=== PATIENT | male | born 1955 | race Caucasian/White ===

== ENCOUNTER 2018-02-27 16:51 | Emergency (ER) | payer OTHER ==
[~2018-02-27] VITALS: Ht 180.3 cm; Wt 87.1 kg
== END 2018-02-28 02:08 | disposition home or self-care (01) ==
LOC: ER 16:51
DX: K52.9 Noninfective gastroenteritis and colitis, unspecified (principal); R10.32 Left lower quadrant pain

== ENCOUNTER 2020-07-12 11:10 | Inpatient (IN) | payer OTHER ==
[~2020-07-12] VITALS: Ht 154.9 cm; Wt 90.7 kg
[~2020-07-12 11:10] MED LIST: DIOVAN40 MG; METFORMIN HCL500 MG; TRIPLE ANTIBIOT15 GM TP
[2020-07-12] MEDS ORDERED: ZESTRIL10 M1 PO (12:00)
== END 2020-07-16 11:53 | disposition home or self-care (01) | DRG 256 ==
LOC: ER 11:10 → MEDJ 19:01
PROVIDERS: Specialist; ADMIT Internal Medicine; ATTEND Internal Medicine
PROC: 0Y6R0Z0 Detachment at Right 2nd Toe, Complete, Open Approach (ICD-10-PCS; principal; 2020-07-14 10:00)
DX: E11.52 Type 2 diabetes mellitus with diabetic peripheral angiopathy with gangrene (principal); I96 Gangrene, not elsewhere classified; L97.518 Non-pressure chronic ulcer of other part of right foot with other specified severity; M86.171 Other acute osteomyelitis, right ankle and foot; E11.621 Type 2 diabetes mellitus with foot ulcer; Z79.4 Long term (current) use of insulin; I10 Essential (primary) hypertension; Z20.822 Contact with and (suspected) exposure to COVID-19; B96.5 Pseudomonas (aeruginosa) (mallei) (pseudomallei) as the cause of diseases classified elsewhere

== ENCOUNTER 2020-08-28 15:11 | Inpatient (IN) | payer OTHER ==
[~2020-08-28] VITALS: Ht 180.3 cm; Wt 94.3 kg
[~2020-08-28 15:11] MED LIST changes: +ZESTRIL10 M1 PO
--- NOTE | 2020-08-28 15:24 | NUR ---
PTE REFIERE CELULITES EN AREA DEL [facility] DONDE LE AMPUTARON HACE 3 SEMAS SE ISAURO S/V Y SE UBICA EN AREA DE OBSERVACION
--- NOTE | 2020-08-28 16:35 | NUR ---
SE ORIENTA PTE SOBRE TX MEDICO EL CUAL REFIERE ENTENDER.SE LE EXTRAEN MUESTRAS BAJO MEDIDAS ASEPTICAS,SE CANALIZA Y SE COLOCA FLUIDOS DE MANTENIMIENTO BAJANDO SIN DIFICULTAD.
--- NOTE | 2020-08-28 23:33 | NUR ---
SE RECIBE PACIENTE EN SANDY CON MEDIDAS DE SEGURIDAD, LUCE ALERTA CONSCIENTE Y ORIENTADO X3. BUEN PATRON RESPIRATORIO. IV PATENTE VENESSA DE EDEMA Y ENROJECIMIENTO. PTE EN ESPERA DE SER VISTO EN CONSULTA POR MEDICINA INTERNA.
--- NOTE | 2020-08-29 07:36 | NUR ---
SE RECIBE PTE MASCULINO ALERTA Y ORIENTADO EN L[place] JAY ESFERAS DEL TUR[place] ANTERIOR, CON BUEN PATRON RESPIRATROIO Y NO REFIERE DOLOR AL MOMENTO. VENOPUNCION PATENTE VENESSA DE EDEMA Y ERITEMA RECIBIENDO TERAPIA DE IVFS 0.9NSS BAJANDO A 150ML/HR. PENDIENTE CONSULTA CON .
== END 2020-09-10 20:53 | disposition home or self-care (01) | DRG 504 ==
LOC: ER 15:11 → SURH 08-29 11:10 → SURG 08-29 11:10 → SURH 08-31 16:50
PROVIDERS: Specialist; ADMIT Internal Medicine; ATTEND Internal Medicine
PROC: BQ3LZZZ Magnetic Resonance Imaging (MRI) of Right Foot (ICD-10-PCS; 2020-08-29)
PROC: 8E0ZXY6 Isolation (ICD-10-PCS; 2020-08-31)
PROC: 0QBN0ZZ Excision of Right Metatarsal, Open Approach (ICD-10-PCS; principal; 2020-09-03 07:00)
PROC: 02HV33Z Insertion of Infusion Device into Superior Vena Cava, Percutaneous Approach (ICD-10-PCS; 2020-09-06)
PROC: 3E04328 Introduction of Oxazolidinones into Central Vein, Percutaneous Approach (ICD-10-PCS; 2020-09-06)
DX: M86.171 Other acute osteomyelitis, right ankle and foot (principal); L03.115 Cellulitis of right lower limb; L97.516 Non-pressure chronic ulcer of other part of right foot with bone involvement without evidence of necrosis; E11.621 Type 2 diabetes mellitus with foot ulcer; B95.8 Unspecified staphylococcus as the cause of diseases classified elsewhere; I73.9 Peripheral vascular disease, unspecified; Z79.84 Long term (current) use of oral hypoglycemic drugs; R60.9 Edema, unspecified
CPT/HCPCS: 73221

== ENCOUNTER 2022-07-13 20:59 | Inpatient (IN) | payer OTHER ==
[~2022-07-13] VITALS: Ht 180.3 cm; Wt 90.7 kg
--- NOTE | 2022-07-13 21:53 | NUR ---
SE RECIBE PTE ALERTA ORIENTADO X3.PTE REFIERE NO TENER MOVILIDAD EN BRAZO DERECHO Y PIERNA DERECHA DESDE LEAH EN LA TARDE.SE ISAURO S/V Y SE UBICA.
--- NOTE | 2022-07-13 22:43 | NUR ---
SE ORIENTA PTE SOBRE TX A SEGUIR, EL CUAL REFIERE ENTENDER. SE COLECTAN MUESTRAS UTILIZANDO MEDIDAS ASEPTICAS
[2022-07-17] MEDS ORDERED: CLOPIDOGREL BIS75 MG PO (21:04)
[2022-07-17] MEDS ORDERED: AMLODIPINE BESYL5 MG PO (21:04)
[2022-07-17] MEDS ORDERED: ZESTRIL10 M1 PO (21:05)
[2022-07-17] MEDS ORDERED: LIPITOR40 MG PO (21:05)
[2022-07-17] MEDS ORDERED: TOPROL XL50 M1 PO (21:06)
[2022-07-17] MEDS ORDERED: KAOPECTATE240 MG PO (21:06)
[2022-07-17] MEDS ORDERED: PANTOPRAZOLE SO40 MG PO (21:06)
[2022-07-17] MEDS ORDERED: ADULT ASPIRIN81 MG PO (21:06)
[2022-07-17] MEDS ORDERED: METFORMIN HCL500 MG PO (21:07)
[2022-07-17] MEDS ORDERED: HYDRODIURIL12.5 MG PO (21:07)
== END 2022-07-17 21:45 | disposition home or self-care (01) | DRG 65 ==
LOC: ER 20:59 → SURG 07-14 00:10
PROVIDERS: ADMIT Internal Medicine; ATTEND Internal Medicine
PROC: B020ZZZ Computerized Tomography (CT Scan) of Brain (ICD-10-PCS; principal; 2022-07-13)
PROC: B030ZZZ Magnetic Resonance Imaging (MRI) of Brain (ICD-10-PCS; 2022-07-13)
PROC: B345ZZZ Ultrasonography of Bilateral Common Carotid Arteries (ICD-10-PCS; 2022-07-14)
PROC: B348ZZZ Ultrasonography of Bilateral Internal Carotid Arteries (ICD-10-PCS; 2022-07-14)
PROC: B246ZZZ Ultrasonography of Right and Left Heart (ICD-10-PCS; 2022-07-14)
PROC: 3E0F7SF Introduction of Other Gas into Respiratory Tract, Via Natural or Artificial Opening (ICD-10-PCS; 2022-07-14)
PROC: 4A12X4Z Monitoring of Cardiac Electrical Activity, External Approach (ICD-10-PCS; 2022-07-15)
DX: I63.89 Other cerebral infarction (principal); G81.91 Hemiplegia, unspecified affecting right dominant side; I10 Essential (primary) hypertension; E11.9 Type 2 diabetes mellitus without complications; Z79.84 Long term (current) use of oral hypoglycemic drugs; Z20.822 Contact with and (suspected) exposure to COVID-19
CPT/HCPCS: 70551

== ENCOUNTER 2022-11-16 15:34 | Inpatient (IN) | payer OTHER ==
[~2022-11-16] VITALS: Ht 152.4 cm; Wt 87.5 kg
[~2022-11-16 15:34] MED LIST changes: +ADULT ASPIRIN81 MG PO; +AMLODIPINE BESYL5 MG PO; +CLOPIDOGREL BIS75 MG PO; +HYDRODIURIL12.5 MG PO; +KAOPECTATE240 MG PO; +LIPITOR40 MG PO; +METFORMIN HCL500 MG PO; +PANTOPRAZOLE SO40 MG PO; +TOPROL XL50 M1 PO
[2022-11-28] MEDS ORDERED: LOSARTAN-HCTZ1 EAC2 PO (18:19)
[2022-11-28] MEDS ORDERED: TOPROL XL50 M1 PO (18:20)
[2022-11-28] MEDS ORDERED: NIFEDIPINE ER60 MG PO (18:21)
== END 2022-11-28 18:29 | disposition home or self-care (01) | DRG 617 ==
LOC: ER 15:34 → MEDI 20:28 → SEC-K 20:28 → MEDI 20:58
PROVIDERS: Specialist; ADMIT Internal Medicine; ATTEND Internal Medicine
PROC: B44HZZZ Ultrasonography of Bilateral Lower Extremity Arteries (ICD-10-PCS; 2022-11-17)
PROC: 0Y6S0Z1 Detachment at Left 2nd Toe, High, Open Approach (ICD-10-PCS; principal; 2022-11-25 10:00)
DX: E11.621 Type 2 diabetes mellitus with foot ulcer (principal); E11.52 Type 2 diabetes mellitus with diabetic peripheral angiopathy with gangrene; I96 Gangrene, not elsewhere classified; M86.272 Subacute osteomyelitis, left ankle and foot; L97.524 Non-pressure chronic ulcer of other part of left foot with necrosis of bone; Z79.4 Long term (current) use of insulin; E11.69 Type 2 diabetes mellitus with other specified complication; B96.1 Klebsiella pneumoniae [K. pneumoniae] as the cause of diseases classified elsewhere; D72.829 Elevated white blood cell count, unspecified

== ENCOUNTER 2022-12-02 10:28 | Inpatient (IN) | payer OTHER ==
[~2022-12-02] VITALS: Ht 180.3 cm; Wt 87.5 kg
[~2022-12-02 10:28] MED LIST changes: +LOSARTAN-HCTZ1 EAC2 PO; +NIFEDIPINE ER60 MG PO
--- NOTE | 2022-12-02 10:44 | NUR ---
PTE ALERTA,ESTABLE Y ORIENTADO.JONATHAN REFIERE QUE FUE OPERADO POR EL JACINTO CUAL LE REALIZO HELEN AMPUTACION DE UNOS DE LOS DEDOS DEL PIES TROY.
--- NOTE | 2022-12-02 11:37 | NUR ---
SE RECIBE PTE ALERTA ORIENTADO X3.SE ISAURO MUESTRAS DE LABORATORIO USANDO MEDIDAS ASEPTICAS.SE ADMINISTRAN MEDICAMENTOS ANI ORDEN MEDICA.SE ORIENTA PTE SOBRE OBJETIVO DE TX MEDICO.MANEJADO POR RIMA PEREZ.
--- NOTE | 2022-12-02 12:09 | NUR ---
RE-EVALUA PTE. SE EDUCA SOBRE TX MEDICO, REFIERE ENTENDER. SE COLECTAN MUESTRAS DE LABORATORIO BAJO MEDIDAS ASEPTICAS. PENDIENTE DUPPLEX VENOUS Y ARTERIAL.
--- NOTE | 2022-12-02 15:42 | NUR ---
PTE ALERTA Y ORIENTADO POR JAY ESFERAS CON BUEN PATRON RESPIRATORIO. SE ENCUENTRA EN SANDY BAJA, BARANDAS ELEVADAS, FRENOS AJUSTADOS Y TIMBRE ACCESIBLE.
--- NOTE | 2022-12-02 15:58 | NUR ---
SE REALIZAN MUESTRAS DE LABORATORIO, ANI ORDEN MEDICA Y SIGUIENDO MEDIDAS ASEPTICAS. DOUGLAS X PORTABLE NOTIFICADOS A PERSONAL DE TURNO. PTE PENDIENTE A RESULTADOS DE LABORATORIO Y A REALIZAR DUPPLEX ARTERIAL Y DOPPLER VENOSO. PERSONAL DE MEDICINA NUCLEAR (MR TIM Y MS RANDY) INDICAN QUE NO HAY PERSONAL PARA REALIZAR DICHOS ESTUDIOS, SE NOTIFICA A DR LACEY.
--- NOTE | 2022-12-03 00:16 | NUR ---
SE RECIBE PTE ALERTA Y ORIENTADO X3 EN SANDY CON BARANDAS ELEVADAS EN COMPANIA DE FAMILIAR. SE OBSERVA EXTREMIDAD INFERIOR IZQUIERDA FRIA Y CON PUNTA DE DEDOS COLOR LOS. SE NOTIFICA A Y SE ADMINISTRAN MEDICAMENTOS ANI ORDEN MEDICA.
[2022-12-04] MEDS ORDERED: ROSUVASTATIN CA20 MG ×2 (08:03)
[2022-12-04] MEDS ORDERED: SYNJARDY 12.5-1 EACH (08:03)
[2022-12-04] MEDS ORDERED: GABAPENTIN300 M2 (08:03)
[2022-12-04] MEDS ORDERED: METFORMIN HCL500 M4 (08:04)
[2022-12-15] MEDS ORDERED: ELIQUIS5 MG PO ×2 (20:07)
[2022-12-15] MEDS ORDERED: LOSARTAN-HCTZ1 EAC2 PO ×2 (20:08)
[2022-12-15] MEDS ORDERED: PROCARDIA XL90 MG PO ×2 (20:08)
[2022-12-15] MEDS ORDERED: ROSUVASTATIN CA20 MG PO ×2 (20:10)
[2022-12-15] MEDS ORDERED: NEURONTIN600 MG PO ×2 (20:11)
[2022-12-15] MEDS ORDERED: TOPROL XL100 M1 PO ×2 (20:12)
== END 2022-12-15 20:17 | disposition home or self-care (01) | DRG 239 ==
LOC: ER 10:28 → MEDI 12-03 01:24
PROVIDERS: Specialist; ADMIT Internal Medicine; ATTEND Internal Medicine
PROC: B44GZZZ Ultrasonography of Left Lower Extremity Arteries (ICD-10-PCS; 2022-12-02)
PROC: 4A12X4Z Monitoring of Cardiac Electrical Activity, External Approach (ICD-10-PCS; 2022-12-07)
PROC: B34 Imaging, Upper Arteries, Ultrasonography (ICD-10-PCS; 2022-12-07)
PROC: B34 Imaging, Upper Arteries, Ultrasonography (ICD-10-PCS; 2022-12-07)
PROC: B24BYZZ Ultrasonography of Heart with Aorta using Other Contrast (ICD-10-PCS; 2022-12-07)
PROC: B030ZZZ Magnetic Resonance Imaging (MRI) of Brain (ICD-10-PCS; 2022-12-07)
PROC: 0Y6J0Z1 Detachment at Left Lower Leg, High, Open Approach (ICD-10-PCS; principal; 2022-12-11 16:00)
PROC: B030ZZZ Magnetic Resonance Imaging (MRI) of Brain (ICD-10-PCS; 2022-12-12)
PROC: B34 Imaging, Upper Arteries, Ultrasonography (ICD-10-PCS; 2022-12-14)
PROC: B34 Imaging, Upper Arteries, Ultrasonography (ICD-10-PCS; 2022-12-14)
DX: E11.52 Type 2 diabetes mellitus with diabetic peripheral angiopathy with gangrene (principal); I63.89 Other cerebral infarction; G81.91 Hemiplegia, unspecified affecting right dominant side; I97.821 Postprocedural cerebrovascular infarction following other surgery; I70.262 Atherosclerosis of native arteries of extremities with gangrene, left leg; T81.49XA Infection following a procedure, other surgical site, initial encounter; L97.418 Non-pressure chronic ulcer of right heel and midfoot with other specified severity; B95.7 Other staphylococcus as the cause of diseases classified elsewhere; E11.621 Type 2 diabetes mellitus with foot ulcer; G45.9 Transient cerebral ischemic attack, unspecified; R47.1 Dysarthria and anarthria; M79.662 Pain in left lower leg; I11.9 Hypertensive heart disease without heart failure; E78.5 Hyperlipidemia, unspecified; Z89.421 Acquired absence of other right toe(s); Z95.820 Peripheral vascular angioplasty status with implants and grafts; Z79.84 Long term (current) use of oral hypoglycemic drugs; Z86.73 Personal history of transient ischemic attack (TIA), and cerebral infarction without residual deficits
CPT/HCPCS: 70553

== ENCOUNTER 2022-12-21 16:03 | Inpatient (IN) | payer OTHER ==
[~2022-12-21] VITALS: Ht 180.3 cm; Wt 86.2 kg
[~2022-12-21 16:03] MED LIST changes: +ELIQUIS5 MG PO; +GABAPENTIN300 M2; +METFORMIN HCL500 M4; +NEURONTIN600 MG PO; +PROCARDIA XL90 MG PO; +ROSUVASTATIN CA20 MG; +ROSUVASTATIN CA20 MG PO; +SYNJARDY 12.5-1 EACH; +TOPROL XL100 M1 PO
--- NOTE | 2022-12-21 16:28 | NUR ---
PTE SE OBSERVA ALERTA JOSEFINA SE OBSERVA QUE NO ESTA VERBALIZANDO JOSEFINA OBECECE COMANDOS. PTE ES RECIBIDO POR AMBULANCIA. SE OBSERVA CON VENOPUNCION ANGIO 20 EN EL BRAZO TROY. PTE SE RELIZA EKG Y ES EVALUADO POR DR BRANCH. HERMANA VERBALIZA QUE PTE TIENE HX DE STROKE.
--- NOTE | 2022-12-21 17:05 | NUR ---
PACIENTE EVALUADO POR DR BRANCH QUIEN ORDENA TRATAMIENTO MEDICO, SE LE ORIENTA A FAMILIAR SOBRE EL MISMO Y VERBALIZA ENTENDER. SE LE COLOCA H/L Y SE LE COLECTAN MUESTRAS BAJO MEDIDAS ASEPTICAS. SE CONECTA PACIENTE A MONITOR CARDIACO Y OXIMETRIA DE PULSO. SE LE REALIZA EKG. PENDIENTE ESTUDIO DE CT Y ESTUDIO DE DOUGLAS X
== END 2022-12-29 22:12 | disposition home or self-care (01) | DRG 64 ==
LOC: ER 16:03 → MEDI 23:19
PROVIDERS: ADMIT Internal Medicine; ATTEND Internal Medicine
PROC: B030ZZZ Magnetic Resonance Imaging (MRI) of Brain (ICD-10-PCS; principal; 2022-12-21)
PROC: B020ZZZ Computerized Tomography (CT Scan) of Brain (ICD-10-PCS; 2022-12-21)
PROC: B246ZZZ Ultrasonography of Right and Left Heart (ICD-10-PCS; 2022-12-21)
PROC: B345ZZZ Ultrasonography of Bilateral Common Carotid Arteries (ICD-10-PCS; 2022-12-21)
PROC: B348ZZZ Ultrasonography of Bilateral Internal Carotid Arteries (ICD-10-PCS; 2022-12-21)
PROC: 3E0F7SF Introduction of Other Gas into Respiratory Tract, Via Natural or Artificial Opening (ICD-10-PCS; 2022-12-21)
PROC: 4A12X4Z Monitoring of Cardiac Electrical Activity, External Approach (ICD-10-PCS; 2022-12-21)
DX: I63.511 Cerebral infarction due to unspecified occlusion or stenosis of right middle cerebral artery (principal); A41.89 Other specified sepsis; T87.44 Infection of amputation stump, left lower extremity; G81.91 Hemiplegia, unspecified affecting right dominant side; E87.1 Hypo-osmolality and hyponatremia; E11.65 Type 2 diabetes mellitus with hyperglycemia; E11.621 Type 2 diabetes mellitus with foot ulcer; L97.519 Non-pressure chronic ulcer of other part of right foot with unspecified severity; I10 Essential (primary) hypertension; E61.2 Magnesium deficiency; D75.838 Other thrombocytosis; R55 Syncope and collapse; R47.01 Aphasia; R53.1 Weakness; Z89.512 Acquired absence of left leg below knee; Z89.411 Acquired absence of right great toe; Z89.421 Acquired absence of other right toe(s); Z79.4 Long term (current) use of insulin; Z86.73 Personal history of transient ischemic attack (TIA), and cerebral infarction without residual deficits
CPT/HCPCS: 70544

== ENCOUNTER 2023-01-09 12:33 | Inpatient (IN) | payer OTHER ==
[~2023-01-09] VITALS: Ht 180.3 cm; Wt 86.2 kg
[2023-01-16] MEDS ORDERED: TRAMADOL HCL50 MG PO (10:32)
[2023-01-17] MEDS ORDERED: TOBRADEX EYE DRO5 ML OP (17:22)
== END 2023-01-17 20:45 | disposition home or self-care (01) | DRG 475 ==
LOC: ER 12:33 → MEDI 18:40
PROVIDERS: Specialist; ADMIT Internal Medicine; ATTEND Internal Medicine
PROC: 0Y6D0Z3 Detachment at Left Upper Leg, Low, Open Approach (ICD-10-PCS; principal; 2023-01-12 12:00)
DX: T87.54 Necrosis of amputation stump, left lower extremity (principal); E11.52 Type 2 diabetes mellitus with diabetic peripheral angiopathy with gangrene; L97.823 Non-pressure chronic ulcer of other part of left lower leg with necrosis of muscle; I96 Gangrene, not elsewhere classified; N39.0 Urinary tract infection, site not specified; E11.622 Type 2 diabetes mellitus with other skin ulcer; T87.44 Infection of amputation stump, left lower extremity; E11.65 Type 2 diabetes mellitus with hyperglycemia; Z86.73 Personal history of transient ischemic attack (TIA), and cerebral infarction without residual deficits; Z79.4 Long term (current) use of insulin; I11.9 Hypertensive heart disease without heart failure; E11.40 Type 2 diabetes mellitus with diabetic neuropathy, unspecified; E78.49 Other hyperlipidemia

== ENCOUNTER 2023-02-16 17:52 | Inpatient (IN) | payer OTHER ==
[~2023-02-16] VITALS: Ht 195.6 cm; Wt 189.6 kg
[~2023-02-16 17:52] MED LIST changes: +TOBRADEX EYE DRO5 ML OP; +TRAMADOL HCL50 MG PO
--- NOTE | 2023-02-16 18:38 | NUR ---
PACIENTE ALERTA TRAIDO EN AMBULANCIA. PACIENTE CON HISTORIAL DE 8 STROKE REFIERE PARAMEDICO TIARRA SER TARIDO A ALOK DE EMERGENCIAS POR PERDIDA DE HABLA Y DEBILIDAD COMPLETA EN DAVIDO RONALDO, SE MIDEN S/V, SE UBICA EN SANDY #13 SE CONECTA A MONITOR CARDIACO, SE PRESENTA CHANDLER A DR. AGUILAR.
--- NOTE | 2023-02-16 19:21 | NUR ---
SE EDUCA A PTE SOBRE TX MEDICO JONATHAN REFIERE ENTENDER, SE ISAURO MUESTRAS DE LABORATORIO UTILIZANDO MEDIDAS ASEPTICAS. SE COLOCA H/L VENESSA DE EDEMA. SE NOTIFICA ESTUDIO DE RX Y CT PENDIENTES A REALIZAR.
--- NOTE | 2023-02-17 07:24 | NUR ---
SE RECIBE PTE ALERTA Y ORIENTADO EN COMPANIA DE FAMILIAR CONECTADO A MONITOR Y OXIMETRIA, YUSEF ELIEZER PREVEMTIVA SE ISAURO VITALES Y SE ORIENTA SOBRE TRATAMIENTO A SEGUIR.
== END 2023-02-24 19:25 | disposition home or self-care (01) | DRG 40 ==
LOC: ER 17:52 → SEC-K 02-17 14:02 → SURH 02-17 14:02
PROVIDERS: Nurse Practitioner Family; ADMIT Internal Medicine; ATTEND Internal Medicine
PROC: B020ZZZ Computerized Tomography (CT Scan) of Brain (ICD-10-PCS; 2023-02-16)
PROC: 4A12X4Z Monitoring of Cardiac Electrical Activity, External Approach (ICD-10-PCS; 2023-02-17)
PROC: 3E0F7SF Introduction of Other Gas into Respiratory Tract, Via Natural or Artificial Opening (ICD-10-PCS; 2023-02-17)
PROC: B030ZZZ Magnetic Resonance Imaging (MRI) of Brain (ICD-10-PCS; 2023-02-19)
PROC: 0JDQ0ZZ Extraction of Right Foot Subcutaneous Tissue and Fascia, Open Approach (ICD-10-PCS; principal; 2023-02-21)
PROC: 8E0ZXY6 Isolation (ICD-10-PCS; 2023-02-21)
DX: I63.89 Other cerebral infarction (principal); L89.153 Pressure ulcer of sacral region, stage 3; L89.894 Pressure ulcer of other site, stage 4; N39.0 Urinary tract infection, site not specified; B37.89 Other sites of candidiasis; G81.91 Hemiplegia, unspecified affecting right dominant side; R47.01 Aphasia; R47.1 Dysarthria and anarthria; I11.9 Hypertensive heart disease without heart failure; E11.51 Type 2 diabetes mellitus with diabetic peripheral angiopathy without gangrene; E11.622 Type 2 diabetes mellitus with other skin ulcer; L08.89 Other specified local infections of the skin and subcutaneous tissue; B96.89 Other specified bacterial agents as the cause of diseases classified elsewhere; R05.9 Cough, unspecified; Z79.84 Long term (current) use of oral hypoglycemic drugs; Z89.421 Acquired absence of other right toe(s); Z89.512 Acquired absence of left leg below knee; Z74.01 Bed confinement status; Z79.4 Long term (current) use of insulin
CPT/HCPCS: 70545

== ENCOUNTER 2023-05-27 18:35 | Inpatient (IN) | payer OTHER ==
[~2023-05-27] VITALS: Ht 152.4 cm; Wt 81.6 kg
[2023-05-27 19:26] LABS: PH,URINE 6.5 (5.0-8.0); URINE APPEARANCE Clear; URINE BILIRRUBIN Small (NEGATIVE); URINE BLOOD Negative; URINE COLOR Dark Yellow; URINE GLUCOSE Negative (NEGATIVE); URINE LEUKOCYTE Trace; URINE NITRATE Negative; URINE PROTEIN 30 (NEGATIVE)
[2023-05-27 19:27] LABS: HEMATOCRIT 32.6 % (39.0-48.0); MEAN CELL VOLUME 82.8 fL (80.0-100.00); MEAN CORPUSCULAR HEMOGLOBIN 27.9 pg (27.00-32.0); MEAN CORPUSCULAR HGB CONC 33.7 g/dl (32.0-36.0); PLATELET COUNT 740 K/uL (150-450); RED BLOOD COUNT 3.94 M/uL (4.00-6.00); RED CELL DISTRIBUTION WIDTH 14.2 % (11.5-14.5)
[2023-05-27 19:30] LABS: URINE BACTERIA 22.6 uL (0.0-1933); URINE EPITHELIAL CELLS 13.4 uL (0.0-38.8); URINE RBC 4.1 uL (0.0-20.8); URINE WBC 4.4 uL (0.0-23.2)
[2023-05-27 19:50] LABS: CALCIUM 10.2 mg/dL (8.5-10.1); CREATININE SERUM 0.72 mg/dL (0.70-1.30); GFR 109.56; POTASSIUM 4.24 mEq/L (3.5-5.1)
[2023-05-29 07:58] LABS: HEMOGLOBIN 9.8 g/dL (13-16.00); MEAN CELL VOLUME 84.4 fL (80.0-100.00); MEAN CORPUSCULAR HEMOGLOBIN 27.6 pg (27.00-32.0); MEAN CORPUSCULAR HGB CONC 32.7 g/dl (32.0-36.0); PLATELET COUNT 736 K/uL (150-450); RED BLOOD COUNT 3.55 M/uL (4.00-6.00); RED CELL DISTRIBUTION WIDTH 14.3 % (11.5-14.5)
[2023-05-29] MEDS ORDERED: GABAPENTIN300 M2 (08:08)
[2023-05-29 08:26] LABS: ALBUMIN 2.1 gm/dL (3.4-5.0); BILIRUBIN TOTAL 0.67 mg/dL (0.3-1.2); CREATININE SERUM 0.67 mg/dL (0.70-1.30); GFR 119.05; GLOBULINA 4.8 G/DL (2.4-3.5); PHOSPHOROUS 3.7 mg/dL (2.5-4.9); POTASSIUM 4.05 mEq/L (3.5-5.1); TOTAL PROTEIN 6.9 gm/dL (6.4-8.2)
[2023-05-29 08:29] LABS: ERYTHROCYTE SEDIMENTATION RATE 61 mm/hr
[2023-05-29 08:38] LABS: C-REACTIVE PROTEIN 19.6 MG/DL (0.00-0.29)
[2023-05-29 11:24] LABS: PLATELET ESTIMATE NORMAL (NORMAL)
[2023-05-30 08:01] LABS: HEMATOCRIT 27.4 % (39.0-48.0); HEMOGLOBIN 9.3 g/dL (13-16.00); MEAN CELL VOLUME 82.2 fL (80.0-100.00); MEAN CORPUSCULAR HEMOGLOBIN 27.8 pg (27.00-32.0); MEAN CORPUSCULAR HGB CONC 33.8 g/dl (32.0-36.0); PLATELET COUNT 670 K/uL (150-450); RED BLOOD COUNT 3.34 M/uL (4.00-6.00); RED CELL DISTRIBUTION WIDTH 14.6 % (11.5-14.5)
[2023-05-30 08:07] LABS: ALBUMIN 1.9 gm/dL (3.4-5.0); BILIRUBIN TOTAL 0.54 mg/dL (0.3-1.2); CALCIUM 8.3 mg/dL (8.5-10.1); CREATININE SERUM 0.5 mg/dL (0.70-1.30); GFR 166.88; GLOBULINA 4.5 G/DL (2.4-3.5); MAGNESIUM 1.8 mg/dL (1.8-2.4); PHOSPHOROUS 3.1 mg/dL (2.5-4.9); POTASSIUM 3.65 mEq/L (3.5-5.1); TOTAL PROTEIN 6.4 gm/dL (6.4-8.2)
[2023-06-02 11:03] LABS: HEMATOCRIT 35.9 % (39.0-48.0); HEMOGLOBIN 12.3 g/dL (13-16.00); MEAN CELL VOLUME 82.7 fL (80.0-100.00); MEAN CORPUSCULAR HEMOGLOBIN 28.3 pg (27.00-32.0); MEAN CORPUSCULAR HGB CONC 34.3 g/dl (32.0-36.0); PLATELET COUNT 646 K/uL (150-450); RED BLOOD COUNT 4.34 M/uL (4.00-6.00); RED CELL DISTRIBUTION WIDTH 14.7 % (11.5-14.5)
[2023-06-04 15:08] LABS: INR 1.21; PARTIAL THROMBOPLASTIN TIME 34.9 SECONDS (22.0-34.0); PROTHROMBIN TIME 12.5 SECONDS (9.0-11.5)
[2023-06-05 06:53] LABS: HEMATOCRIT 34.1 % (39.0-48.0); HEMOGLOBIN 11.6 g/dL (13-16.00); MEAN CELL VOLUME 82.7 fL (80.0-100.00); MEAN CORPUSCULAR HEMOGLOBIN 28.2 pg (27.00-32.0); MEAN CORPUSCULAR HGB CONC 34.1 g/dl (32.0-36.0); PLATELET COUNT 557 K/uL (150-450); RED BLOOD COUNT 4.13 M/uL (4.00-6.00); RED CELL DISTRIBUTION WIDTH 14.9 % (11.5-14.5)
[2023-06-05 07:43] LABS: ALBUMIN 1.9 gm/dL (3.4-5.0); BILIRUBIN TOTAL 0.44 mg/dL (0.3-1.2); CALCIUM 8.4 mg/dL (8.5-10.1); CREATININE SERUM 0.51 mg/dL (0.70-1.30); GFR 163.11; GLOBULINA 4.4 G/DL (2.4-3.5); MAGNESIUM 1.8 mg/dL (1.8-2.4); PHOSPHOROUS 2.9 mg/dL (2.5-4.9); POTASSIUM 3.14 mEq/L (3.5-5.1); TOTAL PROTEIN 6.3 gm/dL (6.4-8.2)
[2023-06-07 05:16] LABS: HEMATOCRIT 34.6 % (39.0-48.0); HEMOGLOBIN 11.9 g/dL (13-16.00); MEAN CELL VOLUME 83.8 fL (80.0-100.00); MEAN CORPUSCULAR HEMOGLOBIN 28.8 pg (27.00-32.0); MEAN CORPUSCULAR HGB CONC 34.3 g/dl (32.0-36.0); PLATELET COUNT 499 K/uL (150-450); RED BLOOD COUNT 4.12 M/uL (4.00-6.00); RED CELL DISTRIBUTION WIDTH 14.8 % (11.5-14.5)
[2023-06-07 05:50] LABS: ALBUMIN 2.1 gm/dL (3.4-5.0); BILIRUBIN TOTAL 0.38 mg/dL (0.3-1.2); CALCIUM 8.4 mg/dL (8.5-10.1); CREATININE SERUM 0.56 mg/dL (0.70-1.30); GFR 146.42; GLOBULINA 4.4 G/DL (2.4-3.5); MAGNESIUM 1.6 mg/dL (1.8-2.4); PHOSPHOROUS 2.1 mg/dL (2.5-4.9); POTASSIUM 3.66 mEq/L (3.5-5.1); TOTAL PROTEIN 6.5 gm/dL (6.4-8.2)
[2023-06-07] MEDS ORDERED: CLOPIDOGREL BIS75 MG PO (18:27)
[2023-06-07] MEDS ORDERED: LOSARTAN-HCTZ1 EAC2 PO (18:27)
[2023-06-07] MEDS ORDERED: ROSUVASTATIN CA20 MG PO (18:28)
[2023-06-07] MEDS ORDERED: TOPROL XL100 M1 PO (18:28)
[2023-06-07] MEDS ORDERED: SYNJARDY 12.5-1 EACH PO (18:31)
[2023-06-07] MEDS ORDERED: NIFEDIPINE ER30 M1 PO (18:31)
[2023-06-07] MEDS ORDERED: GABAPENTIN400 MG PO (18:33)
== END 2023-06-07 19:39 | disposition home or self-care (01) | DRG 240 ==
LOC: ER 18:35 → MEDI 05-28 13:58
PROVIDERS: Emergency Medicine; Internal Medicine; Specialist; ADMIT Internal Medicine; ATTEND Internal Medicine
PROC: 0JBQ3ZZ Excision of Right Foot Subcutaneous Tissue and Fascia, Percutaneous Approach (ICD-10-PCS; 2023-05-29)
PROC: 30233N1 Transfusion of Nonautologous Red Blood Cells into Peripheral Vein, Percutaneous Approach (ICD-10-PCS; 2023-06-01)
PROC: 0Y6F0ZZ Detachment at Right Knee Region, Open Approach (ICD-10-PCS; principal; 2023-06-04 17:00)
DX: E11.52 Type 2 diabetes mellitus with diabetic peripheral angiopathy with gangrene (principal); I96 Gangrene, not elsewhere classified; L03.115 Cellulitis of right lower limb; L97.514 Non-pressure chronic ulcer of other part of right foot with necrosis of bone; B95.61 Methicillin susceptible Staphylococcus aureus infection as the cause of diseases classified elsewhere; E11.621 Type 2 diabetes mellitus with foot ulcer; Z79.4 Long term (current) use of insulin; I10 Essential (primary) hypertension; D75.838 Other thrombocytosis; I25.10 Atherosclerotic heart disease of native coronary artery without angina pectoris; D63.8 Anemia in other chronic diseases classified elsewhere; E78.49 Other hyperlipidemia; D72.828 Other elevated white blood cell count

== ENCOUNTER 2025-03-04 15:39 | Emergency (ER) | payer OTHER ==
[~2025-03-04] VITALS: Ht 121.9 cm; Wt 72.6 kg
[~2025-03-04 15:39] MED LIST changes: +GABAPENTIN400 MG PO; +NIFEDIPINE ER30 M1 PO; +SYNJARDY 12.5-1 EACH PO
[2025-03-04] MEDS ORDERED: ZESTRIL10 M1 (15:59)
[2025-03-04] MEDS ORDERED: PLAVIX75 MG (16:00)
[2025-03-04] MEDS ORDERED: METFORMIN HCL500 M3 (16:00)
[2025-03-04] MEDS ORDERED: KAPSPARGO SPRI100 MG PO (16:00)
[2025-03-04] MEDS ORDERED: FAMOTIDINE/PF 20 MG/2 ML VIAL ONE (16:52)
[2025-03-04] MEDS ORDERED: BARIUM SULFATE 450 ML ORAL.SUSP PO ONE (16:58)
[2025-03-04] MEDS ORDERED: FAMOtidine 10 MG/ML (4ML VIAL) IV ONE (17:00)
[2025-03-04] MEDS ORDERED: 0.9 % SODIUM CHLORIDE 1,000 ML IV ONE (17:00)
[2025-03-04 17:39] LABS: BASO % 0.7 % (0.1-1.2); EOS # 0.20 (0.04-0.54); EOS % 2.8 % (0.7-7.0); LYMPH # 1.96 (1.18-3.74); LYMPH % 27.8 % (19.3-53.1); MEAN PLATELET VOLUME 9.60 fl (9.4-12.4); MONO # 0.48 (0.24-0.82); MONO % 6.8 % (4.7-12.5); NEUT # 4.35 (1.56-6.13); NEUT % 61.6 % (34.0-71.1); RED CELL DISTRIBUTION WIDTH 12.9 % (11.6-14.4)
[2025-03-04 18:08] LABS: INR 1.04
[2025-03-04 18:12] LABS: ALT/SGPT 16.0 U/L (12-78); AST/SGOT 8.0 U/L (15-37); BILIRUBIN TOTAL 0.43 mg/dL (0.3-1.2); BUN CREA RATIO 13.0 (7.0-25.0); CREATININE SERUM 0.79 mg/dL (0.70-1.30); GFR 97.83; GLOBULINA 4.6 G/DL (2.4-3.5); GLUCOSE FASTING 95.0 mg/dL (65-100); OSMOLALITY SERUM 280.0 MOSM/KG (275-295)
[2025-03-04 19:01] LABS: URINE APPEARANCE Clear; URINE BILIRRUBIN Negative (NEGATIVE); URINE BLOOD Negative; URINE COLOR Yellow; URINE GLUCOSE Negative (NEGATIVE); URINE KETONE Negative (NEGATIVE); URINE LEUKOCYTE Negative; URINE NITRATE Negative; URINE PROTEIN Negative (NEGATIVE); URINE UROBILINOGEN 0.2 E.U./dl
[2025-03-04 19:08] LABS: URINE BACTERIA 28.7 uL (0.0-1933); URINE EPITHELIAL CELLS 3.8 uL (0.0-38.8); URINE RBC 6.4 uL (0.0-20.8); URINE WBC 5.8 uL (0.0-23.2)
[2025-03-04 19:10] LABS: URINE CAST 0.00 uL (0.0-1.40)
[2025-03-05 10:21] VITALS: BP 170/90; O2SAT 97
== END 2025-03-05 10:22 | disposition home or self-care (01) ==
LOC: ER 15:39
PROVIDERS: General Practice
DX: K59.00 Constipation, unspecified (principal); E11.9 Type 2 diabetes mellitus without complications; Z79.84 Long term (current) use of oral hypoglycemic drugs
CPT/HCPCS: 36415; 74177; 96365; 96366; 99284; J3490; J7030; Q9965